=== PATIENT | male | born 1980 | race Caucasian/White ===

== ENCOUNTER 2021-08-17 23:16 | Emergency (ER) | payer OTHER ==
[2021-08-17] MEDS ORDERED: Tetracaine 0.5% PF 4 ML BOT ONE (23:47)
[2021-08-17] MEDS ORDERED: Fluorescein Opthalmic Strip ONE ×2 (23:48→23:56)
[2021-08-18] MEDS ORDERED: Gabapentin 300 MG CAP ONE (00:12)
== END 2021-08-18 05:13 ==
LOC: CSHERS 23:16
DX: B02.9 Zoster without complications (principal)
CPT/HCPCS: 99282